=== PATIENT | male | born 1985 | race African-American/Black ===

== ENCOUNTER 2021-03-17 08:36 | Emergency (ER) | payer BC, SELFPAY ==
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
[2021-03-17 08:42] VITALS: BP 157/113; PULSE 79; RESP 16; TEMP 36.4; O2SAT 97
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
[2021-03-17] MEDS: KETOROLAC (*BKC) 60 MG/2 ML VIAL IM (09:28)
[2021-03-17] MEDS: CYCLOBENZAPRINE HCL 10 MG TABLET PO (09:29)
--- NOTE | 2021-03-17 10:15 | ED.NECK ---
HPI - Neck Pain/Injury General Chief Complaint: Neck Pain/Injury Stated Complaint: neck pain Time Seen by Provider: 03/17/21 08:42 Source: patient and family Mode of arrival: ambulatory Limitations: no limitations History of Present Illness HPI Narrative: 36-year-old with no major medical problems here with complaints of bilateral neck pain for past 1 week got worse. He denies any trauma ,no lifting injuries. Increasing pain with movement. He denies any tingling numbness of his upper extremities. MD complaint: neck pain Onset (ago): day(s) (4) Place: home Radiation: upper back Severity: moderate Quality: aching Duration: constant Relieving factors: movement Exacerbating factors: immobilization Associated symptoms: none Related Data Allergies Allergy/AdvReac Type Severity Reaction Status Date / Time No Known Allergies Allergy Verified 03/17/21 08:44 Review of Systems Review of Systems: All systems reviewed & are unremarkable except as noted in HPI and below Constitutional: Constitutional: Reports no additional constitutional complaints Eyes: Eyes: Reports no additional eye complaints ENT: Reports system reviewed and no additional complaints, except as documented Cardiovascular: Cardiovascular: Reports no additional cardiovascular complaints Respiratory: Respiratory: Reports no additional respiratory complaints Gastrointestinal: Gastrointestinal: Reports no additional gastrointestinal complaints Musculoskeletal: Musculoskeletal: Reports as per HPI Integumentary/Breasts: Skin/Breast: Reports system reviewed and no additional complaints, except as docu Neurologic: Reports system reviewed and no additional complaints, except as documented Exam Narrative: Exam Narrative: GENERAL: Well-appearing, well-nourished, and in no acute distress. HEAD: Normocephalic, atraumatic. EYES: PERRLA and EOMI. NECK: Supple.Pain along the trapezius muscle CHEST: Clear to auscultation. No respiratory distress. HEART: Regular rate and rhythm. No murmur heard. Normal peripheral pulses. ABDOMEN: Soft, nontender, nondistended, normal active bowel sounds. EXTREMITIES: Normal range of motion. No edema. SKIN: Warm, dry, no rash. NEURO: No focal deficits. Alert and oriented x3. PSYCH: Normal mood and affect. Course Course Emergency Course: Patient feeling much better after Toradol and Flexeril injection. I discussed her x-ray findings with the patient and the family. Advised him to take pain medication muscle relaxers as prescribed. Vital Signs Vital signs: Vital Signs Temperature 36.4 C L 03/17/21 08:42 Pulse Rate 79 03/17/21 08:42 Respiratory Rate 16 03/17/21 08:42 Blood Pressure 157/113 H 03/17/21 08:42 Pulse Oximetry 97 03/17/21 08:42 Temperature 36.4 C L 03/17/21 08:42 Pulse Rate 79 03/17/21 08:42 Respiratory Rate 16 03/17/21 08:42 Blood Pressure 157/113 H 03/17/21 08:42 Pulse Oximetry 97 03/17/21 08:42 MDM - Neck Pain/Injury Imaging Data Radiologist's impression: ITS Impressions Cervical Spine X-Ray 03/17/21 09:25 IMPRESSION: 1. Cervical straightening. 2. No fracture. Discharge Plan Discharge Clinical Impression: Strain of neck muscle Qualifiers: Encounter type: initial encounter Qualified Code(s): S16.1XXA - Strain of muscle, fascia and tendon at neck level, initial encounter Patient Disposition: Home, Self-Care Condition: Stable Instructions: Antibiotic Form, Neck Pain (ED) Additional Instructions: take pain medications as prescribed. Prescriptions: New tramadol [Ultram] 50 mg tablet 50 mg PO Q6H PRN (Reason: pain) Qty: 14 RF: 0 cyclobenzaprine 5 mg tablet 5 mg PO TID PRN (Reason: muscle spasm) Qty: 20 RF: 0 ibuprofen 600 mg tablet 600 mg PO TID PRN (Reason: pain) Qty: 20 RF: 0 Follow-up/Referrals: PHYSICIAN NOT ON STAFF,NONSTAFF [Primary Care Provider] - Conrad Dow MD [Physician] - Time of Disposition: 1
[2021-03-17 10:17] VITALS: BP 129/78; PULSE 60; RESP 16; O2SAT 97
[2021-03-17 10:38] VITALS: BP 122/79; PULSE 79; RESP 16; O2SAT 100
== END 2021-03-17 10:40 | disposition home or self-care (01) ==
PROVIDERS: Emergency Provider Family Medicine
DX: S16.1XXA Strain of muscle, fascia and tendon at neck level, initial encounter (principal); X58.XXXA Exposure to other specified factors, initial encounter
CPT/HCPCS: 72050; 96372; 99283; A9270; J1885

== ENCOUNTER 2022-11-17 08:54 | Outpatient (CLI) | payer BC, SELFPAY ==
--- NOTE | ~2022-11-17 | MR_ITS ---
EXAMINATION: MR knee LT wo con DATE: 11/17/2022 10:13 INDICATION: Left knee pain. Hit knee on metal desk. Fall. Posterior knee pain. TECHNIQUE: Magnetic resonance imaging (MRI) of the left knee was performed without intravenous contra st. Sequences included axial PD-weighted FS FSE, coronal PD-weighted FSE and PD-weighted FS FSE, sagi ttal PD-weighted FSE, and sagittal T2-weighted FS FSE. COMPARISON: None. FINDINGS: Medial compartment: Oblique undersurface tear of the posterior horn. Apical tear at the meniscal body. Severe diffuse car tilage thinning. Moderate osteophytosis. Lateral compartment: Discoid lateral meniscus, with an apical tear of the meniscal body. Moderate diffuse cartilage thinni ng. Moderate osteophytosis. Patellofemoral compartment: Full-thickness cartilage signal abnormality at the medial facet. Retinacula intact. Mild osteophytosi s. Ligaments and tendons: ACL, PCL, MCL, and LCL are intact. Distal quadriceps tendon thickening with enthesopathy. Thickening and enthesopathy at the origin of the patellar tendon. Mild fluid signal along the pes anserine tendo ns. The remaining flexor and extensor tendons are intact. Fluid: Small volume joint fluid. Subcutaneous fluid anterior to the tibial tuberosity. Osseous/other: Mild marrow edema along the posterior aspect of the medial tibial plateau. IMPRESSION: 1. Oblique undersurface and apical tears of the medial meniscal posterior horn and body, respectively . 2. Apical tear of the discoid lateral meniscus. 3. Posterior marrow contusion involving the medial tibial plateau. 4. Subcutaneous contusion/edema anterior to the tibial tuberosity. 5. Mild strain of the pes anserine tendons. 6. Tricompartmental osteoarthritis. Reviewed, dictated and finalized at location K. RMASTER IMPRESSION: 1. Oblique undersurface and apical tears of the medial meniscal posterior horn and body, respectively. 2. Apical tear of the discoid lateral meniscus. 3. Posterior marrow contusion involving the medial tibial plateau. 4. Subcutaneous contusion/edema anterior to the tibial tuberosity. 5. Mild strain of the pes anserine tendons. 6. Tricompartmental osteoarthritis.
== END 2022-11-17 08:55 | disposition home or self-care (01) ==
PROVIDERS: PCP Nurse Practitioner Adult Health; Visit Provider Nurse Practitioner Adult Health
DX: M79.89 Other specified soft tissue disorders (principal); M17.12 Unilateral primary osteoarthritis, left knee; S83.242A Other tear of medial meniscus, current injury, left knee, initial encounter; X58.XXXA Exposure to other specified factors, initial encounter
CPT/HCPCS: 73721

== ENCOUNTER 2023-05-23 10:30 | Emergency (ER) | payer OTHER, BC, SELFPAY ==
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
[2023-05-23 10:33] VITALS: BP 155/93; PULSE 71; RESP 18; TEMP 37.1; O2SAT 97
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
== END 2023-05-23 13:44 | disposition home or self-care (01) ==
PROVIDERS: Emergency Provider Emergency Medicine; PCP Nurse Practitioner Adult Health
DX: M23.92 Unspecified internal derangement of left knee (principal); S89.92XA Unspecified injury of left lower leg, initial encounter; S16.1XXA Strain of muscle, fascia and tendon at neck level, initial encounter; V73.6XXA Passenger on bus injured in collision with car, pick-up truck or van in traffic accident, initial encounter
CPT/HCPCS: 73562; 99283

== ENCOUNTER 2024-04-13 09:21 | Emergency (ER) | payer BC, SELFPAY ==
[2024-04-13] VITALS (8 sets, daily range): BP systolic 141–186; BP diastolic 64–91; PULSE 70–112; RESP 16–20; TEMP 36.8; O2SAT 94–99
--- NOTE | ~2024-04-13 | US_ITS ---
EXAMINATION: US venous doppler [facility] DATE: 04/13/2024 10:42 INDICATION: Right lower limb pain. Lower limb edema. TECHNIQUE: Grayscale ultrasound images without and with compression and Doppler ultrasound images of the bilateral lower extremity veins were obtained. COMPARISON: None. FINDINGS: The visualized portions of right common femoral vein, profunda (deep) femoral vein, femoral vein, pop liteal vein, posterior tibial veins, and greater saphenous vein outflow are patent. The peroneal vein s are not well visualized. The visualized portions of left common femoral vein, profunda femoral vein, femoral vein, popliteal v ein, posterior tibial veins, and greater saphenous vein outflow are patent. The peroneal veins are no t well visualized. IMPRESSION: 1. No deep venous thrombosis. Reviewed, dictated and finalized at location E.
--- NOTE | ~2024-04-13 | XR_ITS ---
EXAMINATION: XR chest 1V portable DATE: 04/13/2024 09:54 INDICATION: Pulmonary edema. TECHNIQUE: A single frontal view of the chest was obtained. COMPARISON: Chest 2 views 09/15/2018 FINDINGS: There is no pneumonia, pleural effusion, or pneumothorax. The heart size is normal. IMPRESSION: 1. No acute cardiopulmonary disease. Reviewed, dictated and finalized at location E.
--- NOTE | 2024-04-13 09:35 | ECG_ITS ---
Test Date: 2024-04-13 10:15:39 Measurements Intervals [place] Rate: 76 P: -7 OK: 178 QRS: 39 QRSD: 102 T: 11 QT: 352 QTc: 398 Interpretive Statements SINUS RHYTHM NORMAL ELECTROCARDIOGRAM No previous ECG available for comparison Electronically Signed On 04-13-2024 15:22:21 CDT by Mike Galaviz M.D.
--- NOTE | 2024-04-13 09:36 | ED.GENADULT ---
HPI - General Adult General Chief complaint: Extremity Injury, Lower Stated complaint: BLE swelling, pain RLE Time Seen by Provider: 04/13/24 09:28 History of Present Illness HPI narrative: 39-year-old male presenting to the emergency department for evaluation of bilateral leg swelling. Patient reports over the last 2 weeks he has had increased lower leg swelling. Patient states behind the right knee has increased knee pain. Patient has been using compressive stockings over the last 2 weeks but states this has only helped a small amount. Patient denies any prior cardiac history, denies any history of CHF, patient denies any current chest pain or shortness of breath. Patient denies any associated nausea vomiting diarrhea. Patient denies any falls or injuries. Patient has no prior history of PE or DVT. Related Data Allergies Allergy/AdvReac Type Severity Reaction Status Date / Time No Known Allergies Allergy Verified 05/23/23 10:31 Review of Systems Review of Systems: All systems reviewed & are unremarkable except as noted in HPI and below Exam Narrative: APPEARANCE: Well appearing, no pain, no distress, well-nourished. HEAD: normocephalic, atraumatic. EYES: PERRLA/EOMI, conjunctivae clear. NOSE: Normal no drainage EARS:TMS clear with good light reflex. THROAT: Pharynx clear, no exudate. NECK: Supple. No adenopathy, no masses. RESPIRATORY: Airway patent, respirations nonlabored. Clear to auscultation bilaterally, no rales, rhonchi, wheezing. CARDIOVASCULAR: Regular rate and rhythm without murmurs rubs or gallops. ABDOMINAL: Soft, nontender, nondistended, normal bowel sounds MUSCULOSKELETAL: Compressive stockings on bilateral lower extremities with right lower extremity being more edematous than the left. Tenderness behind right knee NEURO: Alert. Cranial nerves II through XII intact. SKIN: Warm, dry. Normal Color Course Course Emergency Course: Patient was updated and workup patient is discharged home Vital Signs Vital signs: Vital Signs Temperature 98.3 F 04/13/24 09:31 Pulse Rate 81 04/13/24 09:31 Respiratory Rate 18 04/13/24 09:31 Blood Pressure 186/91 H 04/13/24 09:31 Pulse Oximetry 97 04/13/24 09:31 Oxygen Delivery Room Air 04/13/24 09:31 Temperature 98.3 F 04/13/24 09:31 Pulse Rate 70 04/13/24 11:19 Respiratory Rate 18 04/13/24 11:19 Blood Pressure 141/66 H 04/13/24 11:19 Pulse Oximetry 99 04/13/24 11:19 Oxygen Delivery Room Air 04/13/24 09:31 Medical Decision Making MDM Narrative Medical decision making narrative: 39-year-old male presents emergency department for evaluation for bilateral leg swelling. Patient is afebrile with no leukocytosis and a stable hemoglobin of 13.3. INR is 1.0. No acute abnormalities on the patient's CMP. Patient's BNP is not elevated. Ultrasound was negative for DVT bilaterally. Chest x-ray shows no acute cardiopulmonary abnormality. No concern for CHF or DVT. Low concern for cellulitis. Suspect a ruptured Valentino's cyst due to the patient have pain behind his right knee. Differential Diagnosis Differential Diagnosis: DVT, Valentino cyst, cellulitis, congestive heart failure, pulmonary edema Vital Signs Vital Signs: Vital Signs Temperature 98.3 F 04/13/24 09:31 Pulse Rate 81 04/13/24 09:31 Respiratory Rate 18 04/13/24 09:31 Blood Pressure 186/91 H 04/13/24 09:31 Pulse Oximetry 97 04/13/24 09:31 Oxygen Delivery Room Air 04/13/24 09:31 Temperature 98.3 F 04/13/24 09:31 Pulse Rate 70 04/13/24 11:19 Respiratory Rate 18 04/13/24 11:19 Blood Pressure 141/66 H 04/13/24 11:19 Pulse Oximetry 99 04/13/24 11:19 Oxygen Delivery Room Air 04/13/24 09:31 Lab Data Lab results reviewed: Yes I reviewed the patient's lab results. 04/13/24 09:41 04/13/24 09:41 Labs: Lab Results 04/13/24 04/13/24 Range/Units 09:41 09:45 WBC 7.0 (4.5-10.0) K/mm3 RBC
[2024-04-13 09:52] LABS: Basophils Absolute Auto 0.1 K/mm3 (0.0-0.1); Basophils Percent Auto 0.7 % (0.2-1.2); Eosinophils Absolute Auto 0.2 K/mm3 (0-0.3); Eosinophils Percent Auto 2.4 % (0-4.4); Hematocrit 41.5 % (42.0-52.0); Hemoglobin 13.3 g/dL (14.0-18.0); Immature Granulocyte Absolute 0.02 K/mm3 (0.00-0.031); Immature Granulocyte Percent A 0.3 % (0-0.5); Lymphocytes Absolute Auto 2.02 K/mm3 (0.9-3.2); Lymphocytes Percent Auto 29.1 % (18.3-44.2); Mean Corpuscular Hemoglobin 25.8 pg (26-34); Mean Corpuscular Volume 80.6 fl (80-100); Mean Platelet Volume 11.3 fl (7.4-10.4); Monocytes Percent Auto 14.5 % (2.6-8.5); Neutrophils Absolute Auto 3.7 K/mm3 (1.3-6.7); Platelet Count Result 288 k/mm3 (150-375); Red Blood Count 5.15 M/mm3 (4.6-6.20); Red Cell Distribution Width 15.2 % (11.5-14.5)
[2024-04-13 10:02] LABS: Prothrombin Time 13.6 Seconds (11.1-14.7)
[2024-04-13 10:02] LABS: Alanine Aminotransferase 27 U/L (6-50); Albumin Level 4.3 g/dL (3.5-5.1); Alkaline Phosphatase 90 U/L (38-126); Anion Gap 7 mmol/L (4-12); Aspartate Amino Transferase 36 U/L (17-59); Bilirubin,Total 1.1 mg/dL (0.2-1.3); Blood Urea Nitrogen 14 mg/dL (9-20); Carbon Dioxide 29 mmol/L (22-30); Chloride 102 mmol/L (98-107); Estimated CRCL calculation 169 ml/min; Estimated Glomerular Filt Rate > 60; Glucose 104 mg/dL (65-110); Potassium 4.4 mmol/L (3.4-5.0); Sodium 138 mmol/L (137-145)
[2024-04-13 10:03] LABS: Partial Thromboplastin Time 28.1 Seconds (22.3-36.8)
[2024-04-13 10:11] LABS: NT Pro B Type Natriuretic Pept < 20 pg/mL (19.9-100)
== END 2024-04-13 11:20 | disposition home or self-care (01) ==
PROVIDERS: Emergency Provider Emergency Medicine; PCP Family Medicine
DX: R22.43 Localized swelling, mass and lump, lower limb, bilateral (principal)
CPT/HCPCS: 36415; 71045; 80053; 83880; 85025; 85610; 85730; 93005; 93970; 99284

== ENCOUNTER 2024-06-02 15:14 | Outpatient (CLI) | payer BC, SELFPAY ==
--- NOTE | ~2024-06-02 | MR_ITS ---
MRI of the right knee Clinical history: Pain Technique: Coronal proton density and proton density-weighted images, sagittal proton-density and T2 fat-sat images, and axial proton-density fat-saturated images were acquired. Findings: Exam is markedly suboptimal due to significant motion artifact on all pulse sequences. Anterior and posterior cruciate ligaments are intact. Lateral collateral ligament complex is intact. MCL probably intact. No lateral meniscal tear seen. Large vertical/radial tear of the posterior horn of the medial meniscu s present. Bone marrow signals are grossly unremarkable. Articular cartilage is very poorly evaluated. Extensor mechanism appears to be intact. Probable moderate joint effusion. No Valentino's cyst evident. Impression: Markedly suboptimal exam due to extensive motion artifact. Large vertical/radial tear of the posterior horn medial meniscus. Moderate joint effusion. Reviewed, dictated and finalized at location . Impression: Markedly suboptimal exam due to extensive motion artifact. Large vertical/radial tear of the posterior horn medial meniscus. Moderate joint effusion.
== END 2024-06-02 15:15 | disposition home or self-care (01) ==
PROVIDERS: PCP Family Medicine
DX: S83.241A Other tear of medial meniscus, current injury, right knee, initial encounter (principal); X58.XXXA Exposure to other specified factors, initial encounter; M25.461 Effusion, right knee
CPT/HCPCS: 73721